=== PATIENT | male | born 1950 | race Hispanic/Latino ===

== ENCOUNTER 2023-12-29 10:05 | Emergency (ER) | payer OTHER, MEDICARE ==
[~2023-12-29] VITALS: Ht 172.7 cm; Wt 79.4 kg
[2023-12-29] MEDS: acetaMINOPHEN 500 MG TABLET PO ONE (10:18)
[2023-12-29 10:53] VITALS: BP 124/72; PULSE 92; RESP 26; TEMP 99; O2SAT 96
== END 2023-12-29 11:00 | disposition home or self-care (01) ==
LOC: EDH 10:05
DX: S80.01XA Contusion of right knee, initial encounter (principal); E11.9 Type 2 diabetes mellitus without complications; I10 Essential (primary) hypertension; F20.9 Schizophrenia, unspecified; W18.39XA Other fall on same level, initial encounter; Y93.89 Activity, other specified; Y92.89 Other specified places as the place of occurrence of the external cause; Y99.8 Other external cause status
CPT/HCPCS: 73562